=== PATIENT | male | born 1975 | race Caucasian/White ===

== ENCOUNTER → 2020-12-23 07:46 | Outpatient (CLI) | payer OTHER, SELFPAY ==
--- NOTE | 2020-12-23 | DI.ECHO.S_ITS ---
[facility] +---------+ : : [address] : [address] [place] : : : : [id number] : : : : Phone: [phone] +---------+ Echocardiogram Report + + :Name: WILLIAM WILKERSON Study Date: 12/23/2020 Height: 74 in : :[facility] ReadingLocation: Weight: 245 lb : : Gender: Male BSA: 2.4 m2 : :: 1975 Age: 45 yrs BP: 150/81 mmHg: :Reason For Study: ASD : :Ordering Physician: CHRISTIAN, : :ADITHYA Brown Performed By: Michael Denny : :Referring: ADITHYA GONZALES : + + Interpretation Summary Normal both left and right ventricle size and function. The ejection fraction is 55-60%. Both atria are normal in size. There is no Doppler evidence for an interatrial shunt. No valvular abnormality. Mildly enlarged ascending aorta. Procedure: A two-dimensional transthoracic echocardiogram with color flow and Doppler was performed. The study quality was technically adequate. Comparison is made with the echocardiogram of 03/28/2020. The patient was in sinus rhythm with heart rates between 56-62 bpm during the exam. Left Ventricle: The left ventricle is normal in size and wall thickness. Left ventricular systolic function is normal. The ejection fraction is estimated to be 55-60%. There are no focal wall motion abnormalities. Diastolic parameters suggest probable normal left ventricular diastolic function and normal filling pressures. Right Ventricle: The right ventricle is normal in size and function. Atria: Both atria are normal in size. There is no Doppler evidence for an interatrial shunt. Mitral Valve: The mitral valve is normal in structure and function. There is trace mitral regurgitation. Aortic Valve: The aortic valve is normal in structure and function. No aortic regurgitation is present. Tricuspid Valve: The tricuspid valve is normal in structure and function. There is a trace or physiologic amount of tricuspid regurgitation. The right ventricular systolic pressure is estimated to be at least 29 mmHg based on an estimated right atrial pressure of 3 mm Hg. Pulmonic Valve: The pulmonic valve is normal in structure and function. There is no pulmonic valvular regurgitation. Great Vessels: The aortic root is normal size. The ascending aorta is mildly enlarged. The IVC is of normal diameter and collapses greater than 50% with a sniff. This suggests a low right atrial pressure of 3 mm Hg. Pericardium/ Pleura There is no pericardial effusion. There is no pleural effusion. MMode/2D Measurements & Calculations LVIDd: 5.5 cm LVOT diam: 2.5 cm LVIDs: 3.7 cm Ao root diam: 3.8 cm FS: 32.5 % asc Aorta Diam: 3.7 cm IVSd: 0.92 cm LVPWd: 1.00 cm LV sarah. diameter/BSA (cm/m^2): 2.3 LV sys. diameter/BSA (cm/m^2): 1.6 LA A2 area: 22.0 cm2 RA area: 15.8 cm2 LA A4 area: 21.3 cm2 LA length (vol): 5.2 cm LA vol: 76.3 ml LA vol index: 32.2 ml/m2 RVD1 (basal): 3.3 cm TAPSE: 2.7 cm Doppler Measurements & Calculations Ao V2 max: 150.7 cm/sec LVOT Max Wilfred: 105.9 cm/sec Ao V2 mean: 95.6 cm/sec LV V1 max P.5 mmHg Ao max P.1 mmHg LV V1 VTI: 23.0 cm Ao mean P.2 mmHg ADRIENNE(I,D): 4.0 cm2 Ao V2 VTI: 27.3 cm ADRIENNE(V,D): 3.3 cm2 sev ratio: 0.84 ADRIENNE indexed to BSA (cm^2/m^2): 1.7 MV E max wilfred: 72.3 cm/sec TR max wilfred: 254.9 cm/sec MV A max wilfred: 60.6 cm/sec TR max P.0 mmHg MV E/A: 1.2 PA pr(Accel): 20.8 mmHg Med Peak E' Wilfred: 8.4 cm/sec E/E' med: 8.6 Lat Peak E' Wilfred: 12.0 cm/sec E/E' lat: 6.0 E/e' average: 7.3 MV dec time: 0.23 sec SV(LVOT): 109.3 ml Electronically signed by: Paris Earl on Reading Physician:12/23/2020 09:47 AM
== END ==
PROVIDERS: PCP Student in an Organized Health Care Education/Training Program; Referring Provider Student in an Organized Health Care Education/Training Program; Visit Provider Student in an Organized Health Care Education/Training Program
DX: Q21.1 Atrial septal defect (principal); I77.89 Other specified disorders of arteries and arterioles
CPT/HCPCS: 93306

== ENCOUNTER → 2021-12-16 16:00 | Outpatient (CLI) | payer OTHER, SELFPAY ==
--- NOTE | 2021-12-16 | DI.ECHO.S_ITS ---
[facility]---------[facility] +---------+ : : [address] : [address] [address] : : : : [phone] : : : : Phone: [phone] : [phone] +---------+ Echocardiogram Report + + :Name: WILLIAM WILKERSON Study Date: 12/16/2021 Height: 74 in : :[facility] ReadingLocation: Weight: 255 lb : : Gender: Male BSA: 2.4 m2 : :: 1975 Age: 46 yrs BP: 149/83 mmHg: :Reason For Study: ATRIAL SEPTAL DEFECT : :Ordering Physician: CHRISTIAN, : :TERRENCE Performed By: Bettye Vázquez : :Referring: TERRENCE BRENNAN : + + Interpretation Summary 1) Normal left ventricular thickness, size, wall motion, and systolic function (EF 55-60%) 2) Upper normal right ventricular size with normal function. 3) No significant valvular abnormalities. 4) The ascending aorta is mildly enlarged at 4.1cm. 5) No doppler evidence of ASD. Patient refused bubble study. 6) Compared to the Echo done 12/23/2020, no significant change. Procedure: A two-dimensional transthoracic echocardiogram with color flow and Doppler was performed. The study quality was technically adequate. Comparison is made with the echocardiogram of 12/23/2020. The patient was in sinus bradycardia with heart rates between 51-65 bpm during the exam. Left Ventricle: The left ventricle is normal in size and wall thickness. The ejection fraction is estimated to be 55-60%. Left ventricular systolic function appears normal without focal wall motion abnormalities. Diastolic parameters suggest a relaxation abnormality of the left ventricle, consistent with probable normal filling pressures. Right Ventricle: The right ventricle is at the upper limits of normal in size. The right ventricular systolic function is normal. Atria: The left atrial size is normal. Right atrial size is normal. There is no Doppler evidence for an interatrial shunt. Mitral Valve: The mitral valve is normal in structure and function. There is trace mitral regurgitation. Aortic Valve: The aortic valve is trileaflet. The aortic valve opens well. There is no aortic valve stenosis. No aortic regurgitation is present. Tricuspid Valve: The tricuspid valve is normal in structure and function. There is mild tricuspid regurgitation. The right ventricular systolic pressure is estimated to be at least 25 mmHg based on an estimated right atrial pressure of 3 mm Hg. Pulmonic Valve: The pulmonic valve leaflets are thin and pliable; valve motion is normal. There is a trace or physiologic amount of pulmonic regurgitation. Great Vessels: The aortic root is normal size. The ascending aorta is mildly enlarged. The IVC is of normal diameter and collapses greater than 50% with a sniff. This suggests a low right atrial pressure of 3 mm Hg. Pericardium/ Pleura There is no pericardial effusion. There is no pleural effusion. MMode/2D Measurements & Calculations LVIDd: 5.7 cm LVOT diam: 2.4 cm LVIDs: 3.6 cm Ao root diam: 3.9 cm FS: 37.5 % asc Aorta Diam: 4.1 cm IVSd: 0.98 cm Ao Arch Diam (Prox Trans): 3.3 cm LVPWd: 1.1 cm LV sarah. diameter/BSA (cm/m^2): 2.4 LV sys. diameter/BSA (cm/m^2): 1.5 LA A2 area: 24.8 cm2 RA long axis: 5.9 cm LA A4 area: 21.7 cm2 RA area: 23.2 cm2 LA length (vol): 5.6 cm RA vol: 77.2 ml LA vol: 81.7 ml RA : 32.1 ml/m2 LA vol index: 33.9 ml/m2 IVC diam: 1.6 cm RVD1 (basal): 3.9 cm RVD2 (mid): 3.2 cm TAPSE: 2.7 cm Doppler Measurements & Calculations Ao V2 max: 137.1 cm/sec LVOT Max Wilfred: 93.9 cm/sec Ao V2 mean: 87.4 cm/sec LV V1 max P.5 mmHg Ao max P.5 mmHg LV V1 VTI: 20.7 cm Ao mean P.5 mmHg ADRIENNE(I,D): 3.7 cm2 Ao V2 VTI: 26.3 cm ADRIENNE(V,D): 3.2 cm2 sev ratio: 0.79 ADRIENNE indexed to BSA (cm^2/m^2): 1.5 MV E max wilfred: 61.3 cm/sec TR max wilfred: 236.4 cm/sec MV A max wilfred: 50.5 cm/sec TR max P.4 mmHg MV E/A: 1.2 PA V2 max: 107.3 cm/sec Med Peak E' Wilfred: 7.7 cm/sec PA V2 mean: 71.3 cm/sec E/E' med: 7.9 PA mean P.3 mmHg Lat Peak E' Wilfred: 11.1 cm/sec PA pr(Accel): 27.6 mmHg E/E' lat: 5.5 E/e' average: 6.7 MV dec time: 0.22 sec SV(OT): 96.8 ml Reading Physician:10:00 AM
== END ==
PROVIDERS: PCP Student in an Organized Health Care Education/Training Program; Referring Provider Student in an Organized Health Care Education/Training Program; Visit Provider Student in an Organized Health Care Education/Training Program
DX: Q21.1 Atrial septal defect (principal); I07.1 Rheumatic tricuspid insufficiency; I77.89 Other specified disorders of arteries and arterioles
CPT/HCPCS: 93306

== ENCOUNTER → 2023-01-14 07:55 | Outpatient (CLI) | payer OTHER, SELFPAY ==
--- NOTE | 2023-01-14 | DI.ECHO.S_ITS ---
[facility]---------+ [facility] +---------+ : : [address] : [address] : : : : [phone] : : : : Phone: [phone] +---------+ Echocardiogram Report + + :Name: WILLIAM WILKERSON Study Date: 01/14/2023 Height: 74 in : :[facility] ReadingLocation: Weight: 235 lb : : Gender: Male BSA: 2.3 m2 : :: 1975 Age: 47 yrs BP: 157/101 mmHg: :Reason For Study: Atrial Septal Defect : :Ordering Physician: Sung Niñoformed By: Danyelle Macdonald : :Referring: NABIL CAZARES : + + Interpretation Summary Patient requested to not perform saline contrast bubble study due to prior diagnosis of PFO via ANGEL. The left ventricle is normal in size. Left ventricular systolic function appears normal without focal wall motion abnormalities. The ejection fraction is estimated to be 55-60%. Diastolic parameters suggest probable normal left ventricular diastolic function and normal filling pressures. The right ventricle is mildly dilated. The right ventricular systolic function is normal. Pulmonary artery pressures cannot be estimated because of the lack of a measurable TR jet velocity. The left atrial size is normal. Right atrial size is normal. There is no significant valvular heart disease. The ascending aorta is mildly enlarged. No changes in comparison to the prior 3 echo studies since 03/28/2020. If clinically concern for the need for ASD closure consider cardiology consult. Procedure: A two-dimensional transthoracic echocardiogram with color flow and Doppler was performed. The study quality was technically adequate. Comparison is made with the echocardiogram of 12/16/2021. Patient requested to not perform saline contrast bubble study due to prior diagnosis of PFO via ANGEL. The patient was in normal sinus rhythm during the exam. Left Ventricle: The left ventricle is normal in size. Left ventricular systolic function appears normal without focal wall motion abnormalities. The ejection fraction is estimated to be 55-60%. Diastolic parameters suggest probable normal left ventricular diastolic function and normal filling pressures. Right Ventricle: The right ventricle is mildly dilated. The right ventricular systolic function is normal. Atria: The left atrial size is normal. Right atrial size is normal. There is no Doppler evidence for an interatrial shunt. Mitral Valve: The mitral valve is normal. There is no mitral valve stenosis. There is no mitral regurgitation noted. Aortic Valve: The aortic valve is trileaflet. The aortic valve opens well. There is no aortic valve stenosis. No aortic regurgitation is present. Tricuspid Valve: The tricuspid valve is normal. There is no tricuspid stenosis. There is trace tricuspid regurgitation. Pulmonary artery pressures cannot be estimated because of the lack of a measurable TR jet velocity. Pulmonic Valve: The pulmonic valve leaflets are thin and pliable; valve motion is normal. There is trace pulmonic regurgitation. There is no significant valvular heart disease. Great Vessels: The aortic root is normal size. The ascending aorta is mildly enlarged. The pulmonary artery is normal size. The IVC is of normal diameter and collapses greater than 50% with a sniff. This suggests a low right atrial pressure of 3 mm Hg. Pericardium/ Pleura There is no pericardial effusion. There is no pleural effusion. MMode/2D Measurements & Calculations LVIDd: 4.4 cm LVOT diam: 2.3 cm LVIDs: 3.4 cm Ao root diam: 3.5 cm FS: 22.7 % asc Aorta Diam: 4.3 cm EPSS: 0.80 cm IVSd: 1.4 cm LVPWd: 1.3 cm LV sarah. diameter/BSA (cm/m^2): 1.9 LV sys. diameter/BSA (cm/m^2): 1.5 LA A2 area: 20.1 cm2 RA long axis: 5.7 cm LA A4 area: 16.6 cm2 RA area: 19.4 cm2 LA length (vol): 5.4 cm RA vol: 56.3 ml LA vol: 52.2 ml RA : 24.2 ml/m2 LA vol index: 22.4 ml/m2 RVD1 (basal): 5.0 cm LVLs ap4: 7.0 cm LVLd ap2: 8.5 cm LVLs ap2: 7.0 cm Doppler Measurements & Calculations Ao V2 max: 130.0 cm/sec LVOT Max Wilfred: 83.0 cm/sec Ao V2 mean: 83.1 cm/sec LV V1 max P.8 mmHg Ao max P.0 mmHg LV V1 VTI: 20.7 cm Ao mean P.0 mmHg ADRIENNE(I,D): 3.3 cm2 Ao V2 VTI: 26.3 cm ADRIENNE(V,D): 2.7 cm2 sev ratio: 0.79 ADRIENNE indexed to BSA (cm^2/m^2): 1.4 MV E max wilfred: 62.7 cm/sec PA V2 max: 112.0 cm/sec MV A max wilfred: 55.6 cm/sec PA V2 mean: 71.1 cm/sec MV E/A: 1.1 PA mean P.0 mmHg Med Peak E' Wilfred: 7.5 cm/sec PA pr(Accel): 18.2 mmHg E/E' med: 8.3 Lat Peak E' Wilfred: 11.7 cm/sec E/E' lat: 5.4 E/e' average: 6.8 MV dec time: 0.24 sec SV(LVOT): 86.0 ml AV VR_phl: 0.64 ADRIENNE(VTI)/BSA_phl: 1.4 Reading Physician:03:22 PM
== END ==
DX: Q21.10 Atrial septal defect, unspecified (principal); I51.7 Cardiomegaly
CPT/HCPCS: 93306